=== PATIENT | male | born 2000 | race Two or more races ===

== ENCOUNTER 2023-08-10 09:13 | Emergency (ER) | payer BC, MEDICAID ==
[~2023-08-10] VITALS: Ht 177.8 cm; Wt 115.8 kg
[2023-08-10] MEDS ORDERED: IBUP1TAB5 PO (12:48)
[2023-08-10] MEDS ORDERED: ACET500T58 PO (12:48)
[2023-08-10 12:50] VITALS: BP 138/80; PULSE 95; RESP 16; TEMP 98.6; O2SAT 99
== END 2023-08-10 13:03 | disposition home or self-care (01) ==
LOC: ER 09:13
DX: J34.89 Other specified disorders of nose and nasal sinuses (principal); Z79.899 Other long term (current) drug therapy
CPT/HCPCS: 70160